=== PATIENT | female | born 2000 | race Two or more races ===

== ENCOUNTER 2022-11-19 20:29 | Emergency (ER) | payer BC ==
[~2022-11-19] VITALS: Ht 167.6 cm; Wt 68.0 kg
[2022-11-19] MEDS ORDERED: SYNTHROID125 MCG (20:57)
== END 2022-11-19 22:37 | disposition home or self-care (01) ==
LOC: ER 20:29
DX: J45.909 Unspecified asthma, uncomplicated (principal); Z20.822 Contact with and (suspected) exposure to COVID-19